=== PATIENT | male | born 1960 | race Caucasian/White ===

== ENCOUNTER 2020-07-06 13:13 | Observation (INO) ==
[2020-07-06 16:57] LABS: Basophils # 0.1 10*3/uL (0.0-0.2); Basophils % 0.7 % (0.0-0.8); Eosinophils # 0.5 10*3/uL (0.0-0.87); Eosinophils % 6.7 % (0.00-10.9); Hematocrit 44.6 VOL% (42.0-52.0); Hemoglobin 14.7 GM/DL (14.0-18.0); Immature Granulocytes % 0.2 %; Immature Granulocytes Absolute 0.02 #; Lymphocytes # 1.5 10*3/uL (1.4-4.0); Lymphocytes % 18.4 % (21.2-54.2); Mean Corpuscular Volume 82.9 FL (87-102); Mean Platelet Volume 9.1 FL (9.6-12.0); Monocytes % 7.8 % (1.7-12.7); Neutrophils % 66.2 % (38.7-73.9); Platelet Count 383 T/CUMM (130-400); Red Blood Count 5.38 MC/CUMM (3.8-5.5); Red Cell Distribution Width 13.2 % (9.3-17.3); White Blood Count 8.1 T/CUMM (4-12)
[2020-07-06 17:29] LABS: Albumin 3.7 G/DL (3.4-5.0); Bilirubin,Total 0.5 MG/DL (0.2-1.0); Calcium 9.3 MG/DL (8.5-10.1); Osmolality,Calculated 277.5 MOS/KG (273-304); Total Protein 7.7 G/DL (6.4-8.3)
[2020-07-06] MEDS ORDERED: CLINDAMYCIN INJ 900 MG in PREMIX 1 EACH IV STA (17:37)
[2020-07-06] MEDS ORDERED: ACETAMINOPHEN 325 MG TABLET PO PRN (18:03)
[2020-07-06] MEDS ORDERED: GLUCAGON 1 MG VIAL IM PRN (18:03)
[2020-07-06] MEDS ORDERED: DEXTROSE 50% 25 GM/50 ML VIAL IV PRN (18:03)
[2020-07-06 20:56] LABS: Amorphous Crystals,Urine Occasional /HPF (Few); RBC,Urine 41 /HPF (0-4); Squamous Epithelial Cell,Urine Occasional /HPF (0-10)
[2020-07-06 20:57] LABS: Bilirubin,Urine Negative (Negative); Glucose,Urine (UA) Negative (Negative); Ketones,Urine Negative (Negative); Nitrite,Urine Negative (Negative); Protein,Urine Negative; Urine Appearance Clear (Clear); Urine Color Yellow (Yellow); Urine Specific Gravity 1.005 (1.001-1.035)
[2020-07-06 20:58] LABS: Blood, Urine Moderate mg/dL (Negative); Urine Urobilinogen 0.2 EU/DL (0.2-1.0)
[2020-07-06] MEDS ORDERED: ENOXAPARIN 40 MG/0.4 ML SYRINGE SUBCUT SCH (21:00)
[2020-07-06] MEDS ORDERED: DEXTROSE 50% 25 GM/50 ML SYRINGE IV PRN (21:08)
[2020-07-06 21:12] LABS: Barbiturates Screen,Urine Negative (Negative); Benzodiazepines Screen,Urine Negative (Negative); Cannabinoid Screen,Urine Positive (Negative); Opiate Screen,Urine Negative (Negative); Phencyclidine Screen,Urine Negative (Negative)
[2020-07-06] MEDS: VANCOMYCIN INJ 1,500 MG in SODIUM CHLORIDE 0.9% 500 ML IV SCH (21:17)
[2020-07-06] MEDS: LOSARTAN 25 MG TABLET PO SCH (23:26)
[2020-07-07] MEDS: VANCOMYCIN INJ 1,500 MG in SODIUM CHLORIDE 0.9% 500 ML IV SCH (08:40)
[2020-07-07] MEDS ORDERED: PANTOPRAZOLE 40 MG TABLET PO SCH (09:00)
[2020-07-07 09:03] LABS: Basophils # 0.1 10*3/uL (0.0-0.2); Basophils % 0.7 % (0.0-0.8); Eosinophils # 0.6 10*3/uL (0.0-0.87); Eosinophils % 6.5 % (0.00-10.9); Hematocrit 41.4 VOL% (42.0-52.0); Hemoglobin 13.8 GM/DL (14.0-18.0); Immature Granulocytes % 0.3 %; Immature Granulocytes Absolute 0.03 #; Lymphocytes # 1.2 10*3/uL (1.4-4.0); Mean Corpuscular HGB Conc 33.3 GM/DL (32-36); Mean Platelet Volume 9.1 FL (9.6-12.0); Neutrophils % 72.5 % (38.7-73.9); Platelet Count 325 T/CUMM (130-400); Red Blood Count 4.99 MC/CUMM (3.8-5.5); Red Cell Distribution Width 13.2 % (9.3-17.3); White Blood Count 8.9 T/CUMM (4-12)
[2020-07-07 09:33] LABS: Albumin 2.9 G/DL (3.4-5.0); Bilirubin,Total 0.4 MG/DL (0.2-1.0); Calcium 8.5 MG/DL (8.5-10.1); Osmolality,Calculated 273.8 MOS/KG (273-304); Total Protein 6.7 G/DL (6.4-8.3)
[2020-07-07 09:34] LABS: Ferritin 125.8 ng/ml (26-388)
[2020-07-07] MEDS: LOSARTAN 25 MG TABLET PO SCH (11:28)
[2020-07-07 16:31] VITALS: BP 149/83
== END 2020-07-07 18:05 | disposition home or self-care (01) ==
LOC: N.ED 13:13 → N.EDINP 13:13 → N.2E 21:16
PROVIDERS: ADMIT Internal Medicine; ATTEND Internal Medicine